=== PATIENT | female | born 1990 | race Caucasian/White ===

== ENCOUNTER 2019-04-08 13:01 | Emergency (ER) | payer OTHER ==
[~2019-04-08] VITALS: Ht 170.2 cm; Wt 59.0 kg
[2019-04-08] MEDS ORDERED: LAMICTAL150 MG PO (13:38)
[2019-04-08] MEDS ORDERED: WELLBUTRIN XL300 MG PO (13:38)
== END 2019-04-08 16:22 | disposition home or self-care (01) ==
LOC: ER 13:01
DX: S60.472A Other superficial bite of right middle finger, initial encounter (principal); W54.0XXA Bitten by dog, initial encounter; Y93.89 Activity, other specified; Y92.89 Other specified places as the place of occurrence of the external cause; Y99.8 Other external cause status